=== PATIENT | female | born 1990 | race African-American/Black ===

== ENCOUNTER 2025-05-22 08:15 | Outpatient (AMB) | payer OTHER, SELFPAY ==
--- OUTSIDE RECORDS SUMMARY | 2024-01-29 09:55 | XMS_ITS | Encounter Summary ---
Author Organization [facility] [place] [address] Care Team Providers Care Tape Keller Operator Name Role Phone Hattie Pruitt DO Primary Care Provider [phone] Encounter Details Date Type Department Care Team (Latest Contact Info) Description 01/29/2024 9:55 AM EDT Hospital Encounter TH HISTORIC ENCOUNTERS EASTERN CONVERSION ONLY Multiple sclerosis (CMS/HCC V24, CMS/HCC V28) Social History Tobacco Use Types Packs/Day Years Used Date Smoking Tobacco: Former Cigarettes Q uit: 09/10/2006 Smokeless Tobacco: Never Alcohol Use Standard Drinks/Week Comments Yes 0 (1 standard drink = 0.6 oz pur e alcohol) Housing Instability Answer Date Recorde d Are you worried that in the next 2 months you may not have stable housing? No 10/21/2024 Food Access & Nutrition Answer Date Rec orded Do you have access to a vari ety of food including fruits and vegetables? Yes 10/21/2024 Access to Healthcare Answer Date Record ed Within the last 3 months, ho w many times did you visit the emergency department for your medical care? 2 10/21/2024 Health Literacy Answer Date Recorded How often do you need to hav e someone help you when you read instructions, pamphlets, or other written material from your doctor or pharmacy? Never 10/21/2024 Caregiver: How often do you need to have someone help you when you read instructions, pamphlets, or other written material from your doctor or pharmacy? Not on file 10/21/2024 Financial Risk Answer Date Recorded How hard is it for you to pa y for the very basics like food, housing, medical care, and air conditioning / heating? Patient declined 10/21/2024 Transportation Answer Date Recorded Has the lack of transportati on kept you from meetings, work, or from getting things needed for daily living? No Has the lack of transportati on kept you from medical appointments or from getting medications? No 10/21/2024 Social Isolation Answer Date Recorded How often do you feel lonely or isolated from th ose around you? Never 10/21/2024 Food Risk Answer Date Recorded Within the past 12 months we worried whether our food would run out before we got money to buy more. Never true 10/21/2024 Within the past 12 months th e food we bought just didn't last and we didn't have money to get more. Never true 10/21/2024 Dependent Care Answer Date Recorded Do you need help finding or paying for care for your loved ones. For example, child psychiatrist or elderly care for an older adult? No 10/21/2024 Education Answer Date Recorded Do you think completing more education or training, like finishing a GED, going to college, or learning a trade, would be helpful for you? No 10/21/2024 Employment and Income Answer Date Recor ded During the last four weeks, have you been actively looking for work? No 10/21/2024 Living Situation Answer Date Recorded What is your living situation? 0 10/21/2024 Comments Unknown Sex and Gender Information Value Date Recorded Sex Assigned at Not on file Legal Sex Female 3:39 AM EST Gender Identity Not on file Sexual Orientation Not on file documented as of this encounter Plan of Treatment Upcoming Encounters Date Type Department Care Team (Late st Contact Info) Description 05/25/2025 12:00 PM EDT Appointment [facility] [place] [facility] [address] [address] documented as of this encounter Visit Diagnoses Diagnosis Multiple sclerosis documented in this encounter Care Teams Tape Keller Operator Relationship Specialty Start Date End Date Hattie Pruitt DO PCP - General Internal Medicine 06/10/22 03/16/24 documented as of this encounter
--- OUTSIDE RECORDS SUMMARY | 2024-06-16 09:52 | XMS_ITS | Encounter Summary ---
Author Organization [facility] [place] [address] Care Team Providers Care Business Coordinator Name Role Phone Hatite Pruitt DO Primary Care Provider [phone] Encounter Details Date Type Department Care Team (Late st Contact Info) Description 06/16/2024 9:52 AM EDT Hospital Encounter TH HISTORIC ENCOUNTERS EASTERN CONVERSION ONLY Social History Tobacco Use Types Packs/Day Years [...] care for your loved ones. For example, assistant child care teacher or elderly care for an older adult? [...] on file documented as of this encounter Last Filed Vital Signs Vital Sign Reading Time Taken Comments Blood Pressure - - Pulse - - Temperature - - Respiratory Rate - - Oxygen Saturation - - Inhaled Oxygen Concentration - - Weight 90.4 kg (199 lb 3.2 oz) 03/11/2024 11:21 AM EDT Height 170.2 cm (5' 7 ) 03/11/2024 11:21 AM EDT Body Mass Index 31.2 03/11/2024 11:21 AM EDT documented in this encounter Plan of Treatment Upcoming Encounters Date Type Department Care Team (Late st Contact Info) Description 05/25/2025 12:00 PM EDT Appointment [facility] for [place] Out[facility] - [place] [address] [facility] [address] [place] [address] documented as of this encounter Visit Diagnoses Not on filedocumented in this encounter Care Teams Business Coordinator Relationship Specialty Start Date End Date Hattie Pruitt DO [address] [place] [address] PCP - General 06/16/24 09/01/24 documented as of this encounter
--- OUTSIDE RECORDS SUMMARY | 2024-06-21 10:11 | XMS_ITS | Encounter Summary ---
Author Organization [facility] Address [address] [place] [address] Care Team Providers Care Teacher Ballet Name Role Phone Hattie Pruitt DO Primary Care Provider Encounter Details Date Type Department Care Team (Late st Contact Info) Description 06/21/2024 10:11 AM EDT Hospital Encounter TH HISTORIC ENCOUNTERS EASTERN CONVERSION ONLY Vicki Quan, TAISHA [address] [facility] [address] [place] [address] Social History Tobacco Use Types Packs/Day Years [...] Record ed Within the last 3 months, princess leon many times did you visit the emergency [...] for your loved ones. For example, child & adolescent psychiatrist or elderly care for an older [...] Sign Reading Time Taken Comments Blood Pressure 120/83 06/21/2024 10:35 AM EDT Sitting Left arm Pulse 82 06/21/2024 10:35 AM EDT Temperature - - Respiratory Rate - - Oxygen Saturation - - Inhaled Oxygen Concentration - - Weight 90.4 kg (199 lb 3.2 oz) 03/11/2024 11:21 AM EDT Height 170.2 cm (5' 7 ) 03/11/2024 11:2 1 AM EDT Body Mass Index 31.2 03/11/2024 11:21 AM EDT documented in this encounter Progress Notes * TAISHA Garcia - 06/21/2024 10:30 AM EDT [facility]: MS HPI: Patient is a 33 y.o. year old female who presents for follow-up regarding ongoing management of multiple sclerosis. Disease Summary Date of onset/Initial symptom presentation:About 2016 Date of diagnosis of MS: 08/2021 Disease course at onset: RRMS Current disease course: RRMS Last MS exacerbation: Previous disease therapies(reason for switch): N/A Current disease therapy: Tysabri Most recent MRI Brain:?? 07/2023 stable 08/30/2022-interval decrease in size of lesions Most recent MRI Cervical spine: 09/06/2022- unchanged Most recent MRI Thoracic spine: CSF: JCV serology result and date:?? neg 0.22 (07/2023) MS mimickers: SSA/SSB/MOG/RACHID/AQP4 negative?? Interim History: Patient returns for urgent visit.She continues Tysabri for disease modifying therapy. She denies new neurological symptoms suggestive of demyelinating event since she was last seen in the office. 06/10 She developed chest pain- Went to [facility] ER and workup neg. symptoms improved by the next day however happened again yesterday. She saw her PCP who felt chest pain was likely related to anxiety.Asked her to reduce citalopram back to 30 mg daily and discontinue Adderall completely. Patient herself feels that 2 episodes of chest pain which occurred were likely related to situational anxiety and she fears that if she discontinues Adderall completely her fatigue will be disabling. She cares for young children and is concerned about how she would manage. Review of Systems Constitutional: Positive for fatigue. All other systems reviewed and are negative. Patient Active Problem List Diagnosis SNOMED CT(R) ??? 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 Multiple sclerosis (HCC) MULTIPLE SCLEROSIS Current Outpatient Medications: ??? albuterol 108 (90 Base) MCG/ACT inhaler, Inhale 1 puff into the lungs as needed., Disp: , Rfl: ??? amphetamine-dextroamphetamine (ADDERALL XR) 20 MG 24 hr capsule, Take 1 capsule (20 mg total) by mouth daily., Disp: 30 capsule, Rfl: 0 ??? amphetamine-dextroamphetamine (ADDERALL, 10MG,) 10 MG tablet, 1 po in afternoon PRN, Disp: 30 tablet, Rfl: 0 ??? citalopram (CeleXA) 20 MG tablet, Take 1.5 tablets (30 mg total) by mouth daily., Disp: , Rfl: ??? ergocalciferol (VITAMIN D2) capsule 17395 units, Take 1 capsule (50,000 Units total) by mouth once a week., Disp: 12 capsule, Rfl: 0 ??? LORazepam (ATIVAN) 0.5 MG tablet, 1 po 1 hour prior to MRI, may repeat 1 at time of MRI if needed, Disp: 5 tablet, Rfl: 0 ??? Magnesium 400 MG CAPS, Take 400 mg by mouth daily., Disp: 30 capsule, Rfl: 3 ??? medroxyPROGESTERone Acetate (DEPO-PROVERA IM), Inject into the muscle., Disp: , Rfl: ??? SUMAtriptan (IMITREX) 50 MG tablet, TAKE 1 TABLET BY MOUTH EVERY 2 HOURS NEEDED FOR MIGRAINE., Disp: 10 tablet, Rfl: 0 Neuro Exam BP 120/83 (BP Location: Left arm, Patient Position: Sitting, Cuff Size: Adult Regular) Pulse 82 There is no height or weight on file to calculate BMI. ?? MS: AOx3 CN: perrla, no red desaturation,V1-3 intact to LT, face symmetric, bilateral SCM/trapezius 5/5, tongue/uvula/palate midline Motor: 5/5 in all extremities except left lower extremity 4+/ 5 proximally Sensation: Intact to light touch, temperature, patient definitely more on the left side Reflexes:??2+ in bilateral biceps and 4+ patellae, toes downgoing bilaterally Cerebellar: FNF intact bilaterally, rapid repetitive movement slower in the left lower extremity, difficulty tandem gait, romberg negative 25 foot timed walk: Not performed at this visit (6.4, 6.8 last visit) A/P: Multiple Sclerosis: Brianna Pacheco is a 33-year-old female with multiple sclerosis treated with Tysabri for disease-modifying therapy. She is recently experienced 2 episodes of chest pain related to situational anxiety. Although her PCP suggested discontinuing her Adderall, she is very concerned that doing so would result in disabling fatigue. I would support her continuing the Adderall at this time and monitoring her anxiety and any further episode of chest pain closely. PCP is also referred her to psychiatric provider which I feel is a great idea. A. Disease modifying therapy and diagnostic plan: -Continue Tysabri per [facility] protocol -Will be due for MRI brain, cervical, and thoracic spine in July 2024 Tysabri monitoring protocol While a patient is ZULEMA virus antibody (JCV Ab) negative and on Tysabri we will check the JCV Ab status every 6 months. ??If the JCV Ab remains negative or JCV Ab positive with an index value 0-0.4, wewill monitor brain MRIs annually (without contrast), unless clinically indicated sooner. ?? If the JCV Ab is positive with an index value between 0.4 and less than or equal to 1.5 the JCV Ab index will continue to be tested every 6 months and MRIs will be done every 6 months with and without contrast, unless clinically indicated sooner as the risk of progressive multifocal leukoencephalopathy (PML) is low. ?? If the JCV Ab is positive with an index value between 0.9 and 1.5 it will ??be checked every 6 months and MRIs will be done every 6 months. If the JCV Ab is positive with an index value >1.5, Tysabri will likely be discontinued after discussions with the patient given the increased risk of PML (in this case, if a patient decides to continue Tysabri despite the known risk of PML, the JCV Ab index value will be checked every 4 months and a brain MRI with and without contrast will be done every 4 months). ?? If the patient has ever been treated with chemotherapeutics in the past, Tysabri will be discontinued, regardless of the index value, if they becomes JCV Ab positive. ? B. ??Symptomatic therapy plan: ?? Mood changes: Continue citalopram 30 mg, has been referred to psychiatric provider ?? Fatigue: Patient will consider continuing Adderall due to history of disabling fatigue Migraine: Patient has sample of Ubrelvy [address] try in place of sumatriptan for acute migraine. ??Patient was encouraged to call the office with any questions or concerns. Follow up in 4 months or sooner as needed with any new neurological symptoms or concerns. The patient and I discussed the clinical picture during today's appointment. Additional time was spent prior to the actual appointment reviewing records, lab values and imaging results and preparing documentation for today's visit. There was also time spent following the in person visit documenting, arranging for further diagnostic testing and follow-up appointments. The entire time spent in thisprocess was greater than 30 minutes. The majority of the actual ataz-me-vvha visit was spent counseling the patient with respect to the current neurological picture. Vicki Quan PA-C Cc: Dr. Schneider documented in this encounter Plan of Treatment Upcoming Encounters Date Type Department Care Team (Late st Contact Info) Description 05/25/2025 12:00 PM EDT Appointment [facility] for [place] Outpatient [facility] - [place] [address] [facility] [address] [place] [address] documented as of this encounter Visit Diagnoses Not on filedocumented in this encounter Care Teams Teacher Ballet Relationship Specialty Start Date End Date Hattie Pruitt DO [address] [place] [address] PCP - General 06/16/24 09/01/24 documented as of this encounter
--- OUTSIDE RECORDS SUMMARY | 2025-05-22 09:20 | XMS_ITS | Clinical Summary ---
Author Organization [facility] Address [address] [place] [address] Care Team Providers Care Safety Physician Name Role Phone Hattie Pruitt Primary Care Provider [phone] Allergies Active Allergy Reactions Criticality Noted Date Comments Drospirenone-Ethinyl Estradiol Other (see comments) 09/10/2021 Iodinated Contrast Media Hives 08/20/2022 Penicillins Hives,Itching,Rash,S welli ng High 06/16/2016 Shellfish Containing Products Rash Low 09/10/2021 Medications No known medications Active Problems Problem Noted Date Diagnosed Date PCOS (polycystic ovarian syndrome) 10/01/2022 Asthma 10/01/2022 Cervical dysplasia 10/01/2022 Chronic female pelvic pain 10/01/2022 Uterine scar from previous delivery 08/2022 Uterine size-date discrepancy 10/01/2022 Acute maxillary sinusitis, unspecified Demyelinating disease of central nervous system 09/10/2021 MS (multiple sclerosis) 08/30/2021 Dichorionic diamniotic twin gestation 06/19/2016 labor 06/16/2016 Social History Tobacco Use Types Packs/Day Years Used Date Smoking Tobacco: Never Assessed Comments Unknown Sex and Gender Information Value Date Recorded Sex Assigned at Female 09/30/2022 6:00 PM EST Legal Sex Female 4:02 PM EST Gender Identity Female 09/30/2022 6:00 PM EST Sexual Orientation Straight 09/30/2022 6: 00 PM EST Last Filed Vital Signs Vital Sign Reading Time Taken Comments Blood Pressure 117/68 10/01/2022 3:12 PM EST Pulse 73 10/01/2022 3:12 PM EST Temperature - - Respiratory Rate - - Oxygen Saturation - - Inhaled Oxygen Concentration - - Weight - - Height - - Body Mass Index - - Plan of Treatment Health Maintenance Due Date Last Done Comments Cervical Cancer Screening 1989 HIV Screening 1989 HPV and Pap Smear 1989 Hepatitis C Screening 1989 Pap Smear 1989 Hepatitis B Vaccines (1 of 3 - 19+ 3-dose series) 2008 Pneumococcal Vaccine: Pediat tammy (0-5 Years) and At-Risk Patients (6-50 Years) (1 of 2 - PCV) 2008 Alcohol/Substance Use Screening 08/31/2024 Depression Screening and Follow-Up 08/31/2024 Social Drivers of Health Brittani ual Screening 08/31/2024 COVID-19 Vaccine (4 - 2024-2 6 season) 2025 08/25/2021, 02/01/2021, 01/04/2021 Influenza Vaccine (#1) 2025 12/23/2021, 2015 DTaP,Tdap,and Td Vaccines (1 0 - Td or Tdap) 02/18/2032 02/17/2022, 05/09/2016, 03/18/2013, Additional history exists RSV Vaccine (60+ years old a nd patients) (1 - 1-dose 75+ series) 2064 Varicella Vaccines Completed 05/11/2008, 12/26/1998 Insurance [place] [address] Care Teams Safety Physician Relationship Specialty Start Date End Date Hattie Pruitt [address] [place] [address] PCP - General 08/11/22
--- OUTSIDE RECORDS SUMMARY | 2025-05-22 09:20 | XMS_ITS | Clinical Summary ---
Author Organization [facility] Address [address] [place] [address] Care Team Providers Care Wire Spooler Name Role Phone Hattie Pruitt DO Primary Care Provider [phone] Allergies Active Allergy Reactions Criticality Noted Date Comments Iodinated Contrast Media Hives 08/20/2022 Penicillin G Rash Low 09/10/2021 Shellfish Rash Low 09/10/2021 Drospirenone-Ethinyl Estradiol 09/10 Medications Medication Sig Dispensed Refills Start Date End Date Status albuterol 108 (90 Base) MCG/ACT inhaler Inhale 1 puff into the lungs as needed. 0 05/05/2019 Active medroxyPROGESTERone Acetate (DEPO-PROVERA IM) Inject into the muscle. 0 Active ergocalciferol (VITAMIN D2) capsule 79048 units Take 1 capsule (50,000 Units total) by mouth once a week. 12 capsule 0 12/08/2022 Active citalopram (CeleXA) 20 MG tablet Take 1.5 tablets (30 mg total) by mouth daily. 0 Active LORazepam (ATIVAN) 0.5 MG tablet 1 po 1 hour prior to MRI, may repeat 1 at time of MRI if needed 5 tablet 0 08/05/2023 Active Magnesium 400 MG CAPS Take 400 mg by mouth daily. 30 capsule 3 10/21/2023 Active SUMAtriptan (IMITREX) 50 MG tablet TAKE 1 TABLET BY MOUTH EVERY 2 HOURS NEEDED FOR MIGRAINE. 10 tablet 0 11/18/2023 Active amphetamine-dextroa mphetamine (ADDERALL, 10MG,) 10 MG tablet 1 po in afternoon PRN 30 tablet 0 06/20/2024 Active amphetamine-dextroa mphetamine (ADDERALL XR) 20 MG 24 hr capsule Take 1 capsule (20 mg total) by mouth daily. 30 capsule 0 06/20/2024 Active Active Problems Problem Noted Date Diagnosed Date Multiple sclerosis 09/11/2021 Demyelinating disease of central nervous system 09/10/2021 Family History Medical History Relation Name Comments Multiple sclerosis Neg Hx Relation Name Status Comments Father Alive Mother Alive Social History Tobacco Use Types Packs/Day Years Used Date Smoking Tobacco: Former Cigarettes Q uit: 09/10/2006 Smokeless Tobacco: Never Tobacco Cessation:Counseling Given: Not Answered Alcohol Use Standard Drinks/Week Comments Yes 0 (1 standard drink = 0.6 oz pur e alcohol) Social Sex and Gender Information Value Date Recorded Sex Assigned at Female 08/13/2021 11:35 AM EST Gender Identity Not on file Sexual Orientation Not on file Job Start Date Occupation Industry Not on file Not on file Not on file Last Filed Vital Signs Vital Sign Reading Time Taken Comments Blood Pressure 120/83 06/21/2024 10:35 AM EDT Pulse 82 06/21/2024 10:35 AM EDT Temperature 36.9 C (98.4 F) 06/16/2024 11:44 AM EDT Respiratory Rate 16 06/16/2024 10:15 AM EDT Oxygen Saturation 98% 06/16/2024 11:44 AM EDT Inhaled Oxygen Concentration - - Weight 90.4 kg (199 lb 3.2 oz) 03/11/2024 11:21 AM EDT Height 170.2 cm (5' 7 ) 03/11/2024 11:21 AM EDT Body Mass Index 31.2 03/11/2024 11:21 AM EDT Plan of Treatment Health Maintenance Due Date Last Done Comments Hepatitis C Screening 1989 Depression Screening 2001 BMI Counseling 11/14/2007 Preventative Health Evaluation 11/14/2007 Cervical Cancer Screening (Pap Smear) 2010 COVID-19 Vaccine ( season) 2025 06/06/2023 Influenza Vaccine (#1) 2025 , 12/23/2021, 06/23/2017, Additional history exists DTap / Tdap / Td (11 - Td or Tdap) 02/18/2032 02/17/2022, 05/09/2016, 03/18/2013, Additional history exists Hepatitis B Vaccines Completed 04/26/2003, 03/10/2002, 10/12/2001 Pneumococcal Vaccine Aged Out 10/27/2023 No long er eligible based on patient's age to complete this topic RSV Ped < 20 months Aged Out No longe r eligible based on patient's age to complete this topic Care Teams Wire Spooler Relationship Specialty Start Date End Date Hattie Pruitt DO [address] [place] [address] PCP - General Family Medicine 08/20/22
--- OUTSIDE RECORDS SUMMARY | 2025-05-22 09:20 | XMS_ITS | Clinical Summary ---
Author Organization 175 [facility] Address [address] [place] [address] Phone Care Team Providers Care Meter Inspector Name Role Phone Sammy Schneider MD Primary Care Provider [phone] Allergies Active Allergy Reactions Criticality Noted Date Comments Barium Sulfate 07/07/2024 Drospirenone-Ethinyl Estradiol Other 09/10/2021 Iodinated Contrast Media Hives Low 06/26/2022 Other reaction(s): Hives/Urticaria PT BEGAN TO HAVE ITCHY TONGUE, BUT STATE IT WENT AWAY AND FELT FINE AFTER INJECTION. PT WENT HOME. PT CALLED [facility] AFTER LEAVING APPOINTMENT AND STATED SHE HAD TWO HIVES ON HER FACE. ADVISE IF GETS WORSE TO GO TO ER.-THOMAS /ANTONIO Penicillins Hives,Rash Medium 04/11/2009 Age 7 or 8 Shellfish Containing Products Rash Low 09/10/2021 Shellfish Derived Rash Low 09/10/2021 Medications albuterol HFA (PROAIR HFA ; PROVENTIL HFA ; VENTOLIN HFA) 90 mcg/actuation inhaler Inhale 2 puffs by mouth. 2 Active acetaminophen (TYLENOL) 325 mg tablet Take 3 tablets (975 mg total) by mouth. 2 Active citalopram (CeleXA) 20 mg tablet Take 1.5 tablets (30 mg total) by mouth 1 (one) time each day. 4 025 Active gabapentin (NEURONTIN) 300 mg capsule Take 1 capsule (300 mg total) by mouth at bedtime. 30 each 1 5 Active acetaminophen-co deine (TYLENOL #3) 300-30 mg per tablet Take 1 tablet by mouth 2 (two) times a day if needed for severe pain. Max Daily Amount: 2 tablets 20 tablet 5 Active meloxicam (Mobic) 7.5 mg tablet Take 1 tablet (7.5 mg total) by mouth 1 (one) time each day if needed for moderate pain. 30 each 1 5 Active cetirizine (ZyrTEC) 10 mg tabletIndication s:Other seasonal allergic rhinitis Take 1 tablet (10 mg total) by mouth 1 (one) time each day. 90 tablet 1 5 Active ubrogepant (UBRELVY) 100 mg tabletIndication s:Migraine without aura and without status migrainosus, not intractable 1 po at onset of migraine, may repeat 1 additional dose in 2 hours if needed Ma 2/24 hours 9 tablet 5 5 Active fluticasone propionate (FLONASE) 50 mcg/actuation nasal spray Administer 2 sprays into each nostril 1 (one) time each day. Shake gently. Before first use, prime pump. After use, clean tip and replace cap. 16 g 5 5 026 Active EPINEPHrine (EPIPEN) 0.3 mg/0.3 mL injection Inject 0.3 mL (0.3 mg total) into the thigh 1 (one) time each day if needed for anaphylaxis. Call 911 after use. 2 each 3 5 Active LORazepam (Ativan) 0.5 mg tablet 1 po 1 hour prior to MRI, may repeat 1 at time of MRI if needed 5 tablet 5 Active levocetirizine (Xyzal) 5 mg tablet Take 1 tablet (5 mg total) by mouth 1 (one) time each day in the evening. 90 each 2 5 026 Active baclofen (LIORESAL) 10 mg tablet TAKE 1 TABLET BY MOUTH DAILY AT BEDTIME 30 tablet 2 5 Active calcium carbonate-vitami n D 500 mg-5 mcg (200 unit) per tablet Take 1 tablet by mouth 2 (two) times a day. 60 each 11 5 026 Active betamethasone dipropionate (DIPROSONE) 0.05 % cream Apply twice a day on the rash for 7 days 45 g 1 5 Active amphetamine-dext roamphetamine XR (ADDERALL XR) 20 mg 24 hr capsule Take 1 capsule (20 mg total) by mouth 1 (one) time each day. Max Daily Amount: 20 mg 30 each 5 Active amphetamine-dext roamphetamine (ADDERALL) 5 mg tablet Add 5mg (1)tablet to the 20mg tablet in the afternoon dose as needed. (Dose Increase) 30 tablet 5 Active amphetamine-dext roamphetamine (ADDERALL) 10 mg tablet Take 1 tablet (10 mg total) by mouth 1 (one) time each day. Max Daily Amount: 10 mg 30 each 5 Active amphetamine-dext roamphetamine (ADDERALL) 20 mg tablet Take 1 tablet (20 mg total) by mouth 1 (one) time each day in the morning. Max Daily Amount: 20 mg Active amphetamine-dext roamphetamine XR (ADDERALL XR) 20 mg 24 hr capsule Take 1 capsule (20 mg total) by mouth 1 (one) time each day. Max Daily Amount: 20 mg 30 each 5 025 Discontin ued(Reord er) amphetamine-dext roamphetamine (ADDERALL) 10 mg tablet Take 1 tablet (10 mg total) by mouth 1 (one) time each day. Max Daily Amount: 10 mg 30 each 5 025 Discontin ued(Reord er) amphetamine-dext roamphetamine (ADDERALL) 5 mg tablet Add 5mg (1)tablet to the 20mg tablet in the afternoon dose as needed. (Dose Increase) 30 tablet 5 025 Discontin ued(Reord er) Active Problems Problem Noted Date Diagnosed Date Asthma 10/01/2022 Cervical dysplasia 10/01/2022 Chronic female pelvic pain 10/01/2022 Uterine scar from previous delivery 08/2022 Uterine size-date discrepancy 10/01/2022 Acute maxillary sinusitis, unspecified 3 Cyst, congenital, lung 07/25/2022 Overview (10/05/2022): Last Assessment & Plan: 31-year-old woman recently diagnosed with MS found to have an enlarging 8 cm cyst with compression of the right middle lobe on CT imaging. I had a long discussion with her about the findings on her CAT scan and about cysts in the lung in general. This is likely a congenital cystic lesion in the lung with risks being mainly of compression of the other lobes of the lung and rupture with pneumothorax. Options would be continued observation versus surgical removal. I discussed the risks and benefits of each and she opted for surgical removal so plan will be for a da Wilfredo right-sided resection of bulla. She would like to schedule this for after the holidays so we will plan on doing it the first week in August. In addition, I would like her to see her neurologist for a preoperative assessment around her medication and any other preparations we would need to make for surgery. All questions were answered. 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 Last Assessment & Plan: 31 y/o female S/P Robotic right resection of bronchogenic cyst on 09/23/22. 1. Patient is recovering well from her surgery. It appears she is having moderate to severe post op pain at times accompanied by numbness/tingling. I will reorder oxycodone 5 mg #30 with instructions to take 1 every 6 hours prn pain and may take up to 2 every 6 hours. She will run out of current RX tomorrow. Continue bowel regimen. 2. Instructed her to call if numbness does not resolve in 6 months time for pain consult. Encouraged her that she is only 2 weeks out and she is still healing from surgery. 3. Path report demonstrated a bronchiogenic cyst. No further follow-up required. 3. Continue IS X 2 more weeks 4. Pt is instructed to call office with any additonal questions or concerns. Care discussed with Dr. Singleton. 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 [place] Out[facility] Rehabil[facility]itation [address] [phone] MS (multiple sclerosis) ([facility] V24, [facility] V28) (Primary Dx) Discharge Disposition: Home or Self Care 04/14/2025 Telephone Internal Medicine [address] [phone] Storm Stinson [place] 04/10/2025 10:45 AM EDT Office Visit Internal Medicine [address] [phone] Sammy Schneider MD Contact dermatitis due to nickel (Primary Dx); Overweight 04/10/[address] [facility] [address] [phone] Sammy Schneider MD 03/30/2025 Telephone [facility] [place] Out[facility]itation [address] [phone] Vicki Quan PA 03/29/2025 9:57 AM EDT - 03/29/2025 11:59 PM EDT Hospital Encounter [facility] [place] Outpatient Rehabil[facility]itation [address] [phone] MS (multiple sclerosis) ([facility] V24, [facility] V28) (Primary Dx) Discharge Disposition: Home or Self Care 03/01/2025 9:59 AM EDT - 03/01/2025 11:59 PM EDT Hospital Encounter [facility] [place] Out[facility] [address] [place] [address] MS (multiple sclerosis) ([facility] V24, [facility] V28) (Primary Dx) Discharge Disposition: Home or Self Care from Last 3 Months Immunizations Name Administration Dates Next Due COVID-19 (Pfizer/Comirnaty) 12yo and older 06/06/2023 DTP 01/20/1995, 1,06/10/1990,03/19,01/08/1990 DTaP (Infanrix) 6wks to less than 7yo 01/20/2005 QMsM-TPJ-LFA (Pentacel) 2mo to less than 5yo 01/20/1995,02/15/1991,11/22/1990,10/04 HPV, Quadrivalent 04/17/2008,11/09/2007,09/07/19 08 Hepatitis B Pediatric (Enger ix B; Recombivax HB) to less than 20 yo 04/26/2003,03/10/2002,10/12/2001 Influenza Quadravalent, MDCK , 0.5ml, preservative free (Flucelvax) 6mo and older 05/05/2024 Influenza Quadravalent, MDCK , 0.5ml, with preservative (Flucelvax) 6mo and older 06/23/2017 Influenza Quadrivalent, 0.5m l, preservative free (Fluarix; FluLaval; Fluzone) ages 6mo and older (Afluria) 3yo and older 06/06/2023 Influenza trivalent, with pr eservative (Fluzone; Afluria) 6mo and older 12/23/2021,06/05/2016 MMR, measles mumps and rubel la Live (Priorix; M-M-R II) 12mo and older 01/20/1995,02/15/1991 Meningococcal MCV4P 09/07/2007 OPV 01/20/1995, 1,03/19/1990,01/08 PPD Test 08/20/2017, 7,09/04/2015,12/11 Pfizer SARS-CoV-2 COVID-19, mRNA, LNP-S, preservative free 06/06/2023 Pneumococcal conjugate 20 va lent (Prevnar 20, PCV 20) 2mo and older 10/27/2023 Td Tetanus diptheria (Tdvax) 7yo and older 04/29/2002 Tdap Tetanus diptheria acell ular pertussis (Boostrix; Adacel) 7yo and older 02/17/2022,05/09/2016,03/18/2013,05/11 Surgical History Surgery Date Site/Laterality Comments CERVICAL BIOPSY W/ LOOP ELECTRODE EXCISION 04/14/2017, 2018 PROCEDURE: HISTORICAL CONE BIOPSY; COMMENT: precancerous cells. Dr. Hu at [place] OTHER SURGICAL HISTORY PROCEDURE: HISTORY OTHER; COMMENT: tooth extraction WISDOM TOOTH EXTRACTION Bilateral PROCEDURE: HISTORICAL WISDOM TEETH EXTRACTION Medical History Medical History Date Comments Depression 01/16/2011 DX:Depression History of cervical dysplasia 06/01/2013 DX :History of cervical dysplasia; COMMENT: [facility] bx 03/2017 precancerous cells, f/u benign per Pt. Anxiety 12/11/2014 DX:Anxiety PCOS (polycystic ovarian syndrome) 06/23/2017 DX:PCOS (polycystic ovarian syndrome) Vitamin D deficiency 07/20/2017 DX:Vitamin D deficiency History of mononucleosis 07/20/2017 DX:Hist ory of mononucleosis; COMMENT: Hospitalized 05/2006 Multiple sclerosis 07/2021 DX:Multiple s clerosis (HCC) PCOS (polycystic ovarian syndrome) DX:PCOS (polycystic ovarian syndrome) Abnormal Pap smear of cervix DX: Abnormal Pap smear of cervix MS (multiple sclerosis) DX:MS (m ultiple sclerosis) (HCC) Family History Medical History Relation Name Comments Breast cancer Aunt Grand aunt on her mother's side. Hypertension Father Thyroid disease Mother Diabetes Mother's side maternal great grandmother Heart attack Paternal Grandfather CHF Diabetes Paternal Grandmother Multiple sclerosis Neg Hx Relation Name Status Comments Aunt Great Aunt- mot her's side Father Alive Mother Alive Mother's side great grandmot her Paternal Grandfather Paternal Grandmother Social History Tobacco Use Types Packs/Day Years [...] for your loved ones. For example, child care counselor or elderly care for an older adult? [...] on file Sexual Orientation Not on file Obstetrics History Last Filed Vital Signs Vital Sign Reading Time Taken Comments Blood Pressure 120/80 04/26/2025 12:06 PM EDT Pulse 83 04/26/2025 12:06 PM EDT Temperature 36.4 C (97.6 F) 04/26/2025 12:06 PM EDT Respiratory Rate 16 04/26/2025 12:06 PM EDT Oxygen Saturation 98% 04/26/2025 12:06 PM EDT Inhaled Oxygen Concentration - - Weight 87.3 kg (192 lb 6.4 oz) 04/10/2025 10:50 AM EDT Height 167.6 cm (5' 6 ) 04/10/2025 10:50 AM EDT Body Mass Index 31.05 04/10/2025 10:50 AM EDT Plan of Treatment Upcoming Encounters Date Type Department Care Team ([facility] st Contact Info) Description 05/25/2025 12:00 PM EDT Appointment [facility] [place] [facility] [address] [phone] Health Maintenance Due Date Last Done Comments Cervical Cancer Screening: Pap Smear 2010 Hepatitis C Screening 08/07/2022 Social Influencers of Health Screening 10/21/2025 10/21/2024 DTaP,Tdap,and Td Vaccines (11 - Td or Tdap) 02/18/2032 02/17/2022, 05/09/2016, 03/18/2013, Additional history exists RSV Immunization Adult Patients (1 - 1-dose 75+ series) 2064 HIB Vaccines Completed 01/20/1995, 01/29, 11/22/1990, Additional history exists IPV Vaccines Completed 01/20/1995, 12/30, 04/29/1991, Additional history exists MMR Vaccines Completed 01/20/1995, 02/15/1991 Hepatitis B Vaccines Completed 04/26/2003, 03/10/2002, 10/12/2001 Meningococcal ACWY Vaccine Completed 09/07/2007 HPV Vaccines Completed 04/17/2008, 10/29, 09/07/2007 Varicella Vaccines Completed 05/11/2008, 12/26/1998 HIV Screening Completed 06/16/2016 Pneumococcal Vaccine: Pediatrics (0 to 5 Years) and At-Risk Patients (6 to 49 Years) Completed 10/27/2023 COVID-19 Vaccine Completed 05/22/2024, 02/2023, 06/06/2023, Additional history exists Depression Screening Completed 10/21/2024 Influenza Vaccine Completed 05/09/2025, , 06/06/2023, Additional history exists Hepatitis A Vaccines Aged Out No long er eligible based on patient's age to complete this topic Meningococcal B Vaccine Aged Out No l onger eligible based on patient's age to complete this topic RSV Immunization Patients Under 20 months Aged Out No longer eligible based on patient's age to complete this topic Procedures Procedure Name Priority Date/Time Associated Diagnosis Comments CBC WITH AUTO DIFFERENTIAL Routine 03/29/2025 10:03 AM EDT CBC AND DIFFERENTIAL Routine 03/29/2025 10:03 AM EDT HEPATIC FUNCTION PANEL Routine 03/29/2025 10:02 AM EDT JCV POLYOMA VIRUS ANTIBODY WITH REFLEX TO INHIBITION ASSAY Routine 03/29/2025 10:02 AM EDT MS (multiple sclerosis) ([facility] V24, [facility] V28) from Last 3 Months Results * (ABNORMAL) CBC auto differential (03/29/2025 10:03 AM EDT) WBC 8.2 4.8 - 10.8 K/mcL LAB HEMETOLOGY METHOD 03/29/2025 2:30 PM EDT [facility] RBC 4.50 3.80 - 4.80 M/mcL LAB HEMETOLOGY METHOD 03/29/2025 2:30 PM EDT [facility] Hemoglobin 12.3 11.5 - 16.0 g/dL LAB HEMETOLOGY METHOD 03/29/2025 2:30 PM EDT [facility] Hematocrit 39.0 35.0 - 47.0 % LAB HEMETOLOGY METHOD 03/29/2025 2:30 PM EDT [facility] MCV 86.1 79.0 - 98.0 FL LAB HEMETOLOGY METHOD 03/29/2025 2:30 PM EDT [facility] MCH 27.2 27.0 - 32.0 pcg LAB HEMETOLOGY METHOD 03/29/2025 2:30 PM EDT [facility] MCHC 31.5(L) 32.0 - 37.0 g/dL LAB HEMETOLOGY METHOD 03/29/2025 2:30 PM EDT [facility] RDW 13.2 11.0 - 15.0 % LAB HEMETOLOGY METHOD 03/29/2025 2:30 PM EDT [facility] Platelets 308 130 - 400 K/mcL LAB HEMETOLOGY METHOD 03/29/2025 2:30 PM EDT [facility] MPV 10.0 7.0 - 11.0 FL LAB HEMETOLOGY METHOD 03/29/2025 2:30 PM EDT [facility] NRBC 0.0 <1.0 % LAB HEMETOLOGY METHOD 03/29/2025 2:30 PM EDT [facility] NRBC Absolute 0.00 <0.10 K/mcL LAB HEMETOLOGY METHOD 03/29/2025 2:30 PM EDT [facility] Neutrophils Relative 42.5 % LAB HEMETOLOGY METHOD 03/29/2025 2:30 PM EDT [facility] Lymphocytes Relative 46.6 % LAB HEMETOLOGY METHOD 03/29/2025 2:30 PM EDT [facility] Monocytes Relative 6.3 % LAB HEMETOLOGY METHOD 03/29/2025 2:30 PM EDT [facility] Eosinophils Relative 3.1 % LAB HEMETOLOGY METHOD 03/29/2025 2:30 PM EDT [facility] Basophils Relative 0.9 % LAB HEMETOLOGY METHOD 03/29/2025 2:30 PM EDT [facility] Immature Granulocytes Relative 0.6 % LAB HEMETOLOGY METHOD 03/29/2025 2:30 PM EDT [facility] Neutrophils Absolute 3.48 1.50 - 7.00 K/mcL LAB HEMETOLOGY METHOD 03/29/2025 2:30 PM EDT [facility] Lymphocytes Absolute 3.80 1.00 - 5.00 K/mcL LAB HEMETOLOGY METHOD 03/29/2025 2:30 PM EDT [facility] Monocytes Absolute 0.51 0.20 - 1.00 K/mcL LAB HEMETOLOGY METHOD 03/29/2025 2:30 PM EDT [facility] Eosinophils Absolute 0.25 0.00 - 0.50 K/mcL LAB HEMETOLOGY METHOD 03/29/2025 2:30 PM EDT [facility] Basophils Absolute 0.07 0.00 - 0.20 K/mcL LAB HEMETOLOGY METHOD 03/29/2025 2:30 PM EDT [facility] Immature Granulocytes Absolute 0.05(H) 0.00 - 0.03 K/mcL LAB HEMETOLOGY METHOD 03/29/2025 2:30 PM EDT [facility] Blood Venous blood specimen / Unknown Venipuncture / Unknown 03/29/2025 10:03 AM EDT 03/29/2025 10:03 AM EDT us Vicki SUMNER LAB BLOOD ORDERABLES Final R esult [facility] [address] [place] [address], * JCV polyoma virus antibody with reflex to inhibition assay (03/29/2025 10:02 AM EDT) Index Value 0.17 04/05/2025 12:05 PM EDT [facility] JCV Antibody Negative 04/05/2025 12:05 PM EDT [facility] Comment: Index interpretive criteria: <0.20 negative 0.20-0.40 indeterminate >0.40 positive Interpretation Note 04/05/2025 12:05 PM EDT [facility] Comment: INTERPRETATION Negative: Antibodies to JCV not detected. Indeterminate: Low level reactivity detected, see Inhibition Assay result below for the final antibody result. Positive: Antibodies to ZULEMA virus (JCV) detected indicating the patient has been exposed to JCV at an undetermined time. The STRATIFY JCV(R) DxSelect(TM) Antibody Test is an enzyme-linked immunosorbent assay (JUDIT) designed to detect JCV antibodies to help identify individuals who have been exposed to the virus. Samples with low level reactivity in the detection assay are retested in a confirmation (inhibition) assay to confirm presence or absense of JCV-specific antibodies. Retrospective analyses of post marketing data from various sources, including observational studies and spontaneous reports obtained worldwide, suggest that the risk of developing PML may be associated with relative levels of serum anti-JCV antibody as measured by anti-JCV antibody index. (1) (1) TYSABRI(natalizumab)US Prescribing Information Interpretation Note 04/05/2025 12:05 PM EDT [facility] Comment: Positive: Antibodies to ZULEMA virus (JCV) detected indicating the patient has been exposed to JCV at an undetermined time Negative: Antibodies to JCV not detected Blood Venous blood specimen / Unknown Venipuncture / Unknown 03/29/2025 10:02 AM EDT 03/29/2025 10:02 AM EDT Narrative [facility] - 04/05/2025 12:05 PM EDT Performed at: 01 - [facility] [address] [place] [id number] Body Corporate Manager: Shavonne Golden MD, Phone: [phone] us Vicki SUMNER LAB BLOOD ORDERABLES Final R esult [facility] * Hepatic function panel (03/29/2025 10:02 AM EDT) Total Protein 7.2 6.0 - 8.0 g/dL LAB CHEMISTRY METHOD 03/29/2025 3:01 PM EDT [facility] Albumin 4.3 3.2 - 5.0 g/dL LAB CHEMISTRY METHOD 03/29/2025 3:01 PM [facility] Total Bilirubin 0.4 0.0 - 1.4 mg/dL LAB CHEMISTRY METHOD 03/29/2025 3:01 PM [facility] Bilirubin, Direct <0.1 0.0 - 0.3 mg/dL LAB CHEMISTRY METHOD 03/29/2025 3:01 PM [facility] Bilirubin, Indirect LAB CHEMISTRY METHOD 03/29/2025 3:01 PM [facility] Comment:Unable to calculate Indirect Bilirubin. ALT (SGPT) 23 10 - 60 unit/L LAB CHEMISTRY METHOD 03/29/2025 3:01 PM [facility] AST (SGOT) 13 10 - 42 unit/L LAB CHEMISTRY METHOD 03/29/2025 3:01 PM [facility] Alkaline Phosphatase 74 42 - 121 unit/L LAB CHEMISTRY METHOD 03/29/2025 3:01 PM [facility] Blood Venous blood specimen / Unknown Venipuncture / Unknown 03/29/2025 10:02 AM EDT 03/29/2025 10:02 AM EDT us Vicki SUMNER LAB BLOOD ORDERABLES Final R esult [facility] [address] [place] [address], from Last 3 Months Insurance [facility] [employer] Care Teams Meter Inspector Relationship Specialty Start Date End Date Sammy Schneider MD [address] [facility] [address] [place] [address] PCP - General Internal Medicine 09/02/24
--- OUTSIDE RECORDS SUMMARY | 2025-05-22 09:20 | XMS_ITS | Clinical Summary ---
Author Organization Formerly [facility] Address [address] [place] [address] Care Team Providers Care Teacher Lip Reading Name Role Phone Provider, Unknown Primary Care Provider [phone] Allergies Active Allergy Reactions Criticality Noted Date Comments Penicillins Hives Medium 06/16/2016 Medications famotidine (PEPCID) 20 MG tablet Take 20 mg by mouth 2 (two) times a day. 2 04/28/2016 Active Active Problems Problem Noted Date Diagnosed Date Dichorionic diamniotic twin gestation 06/19/2016 labor 06/16/2016 Social History Tobacco Use Types Packs/Day Years Used Date Smoking Tobacco: Never Comments No Sex and Gender Information Value Date Recorded Sex Assigned at Not on file Legal Sex Female 3:20 AM EDT Gender Identity Not on file Sexual Orientation Not on file Last Filed Vital Signs Vital Sign Reading Time Taken Comments Blood Pressure 118/64 06/19/2016 9:17 AM EDT Pulse 83 06/19/2016 9:17 AM EDT Temperature 36.7 C (98 F) 06/19/2016 9:17 AM EDT Respiratory Rate 20 06/19/2016 9:17 AM EDT Oxygen Saturation 97% 06/19/2016 9:17 AM EDT Inhaled Oxygen Concentration - - Weight 91.2 kg (201 lb) 06/16/2016 5:00 AM EDT Height 170.2 cm (5' 7 ) 06/16/2016 5:00 AM EDT Body Mass Index 31.48 06/16/2016 5:00 AM EDT Plan of Treatment Health Maintenance Due Date Last Done Comments Hepatitis C Virus Screening 1989 DTaP/Tdap/Td Vaccines (1 - Tdap) 2008 Hepatitis B Vaccines (1 of 3 - 19+ 3-dose series) 2008 Pap Smear (Ages 21-65) 2010 HPV Vaccines (1 - 3-dose SCD M series) 2016 Influenza Vaccine 03/31/2025 COVID-19 Vaccine (1 - 2023-2 5 season) 2025 HIV Screening Completed 06/16/2016, 06/16/2016, 01/10/2016 Pneumococcal Vaccine: Pediatric (0-5 Years) and At-Risk Patients (6 to 49 Years) Aged Out No longer eligible b ased on patient's age to complete this topic Procedures Procedure Name Priority Date/Time Associated Diagnosis Comments (REPORT) RAPID HIV 1/2 AB EIA REFLEX TO CONFIRMATION STAT 06/16/2016 5:58 AM EDT from Last 3 Months or Most Recently Relevant to Health Maintenance Results * Rapid HIV 1/2 Ab EIA Reflex to Confirmation (06/16/2016 5:58 AM EDT) [facility] Rapid HIV 1/2 Antibody Negative Negative [facility] Comment:OraQuick Advance is a rapid lateral immunoassay for detecting HIV-1/2 antibody. Blood specimen (specimen) Blood specimen / Unknown 06/16/2016 5:58 AM EDT 06/16/2016 6:57 AM EDT Adri Bower MD LAB BLOOD ORDERABLES Final Result [facility] from Last 3 Months or Most Recently Relevant to Health Maintenance Insurance MEDICAID OUT OF STATE [facility] on file Advance Directives * Full Code (Latest Code Status on File) Date Activated Date Inactivated Comments 06/18/2016 4:43 PM 06/19/2016 6:55 PM * Full Code Date Activated Date Inactivated Comments 06/16/2016 5:59 AM 06/18/2016 4:43 PM Care Teams Teacher Lip Reading Relationship Specialty Start Date End Date Provider, Unknown 1 DO NOT USE THIS RECORD PCP - General 06/16/16
--- NOTE | 2025-05-22 11:11 | A.OFFVIS_ITS ---
VS Expanded 05/22/25 11:23 Height 5 ft 6 in Weight 192 lb 8 oz BMI 31.1 Body Fat % 43.6 Body Fat Mass 84 Fat Free Mass 108.6 Visceral Fat Rating 8 Body Water % 40.4 Body Water Mass 77.8 Basal Metabolic Rate/Score 1,542 Intake Visit Reasons: [facility] * Allergies Penicillins Allergy (Mild, Verified 05/22/25 11:11) HIVES Medication List - Last Reconciled 05/22/25 by Farzad Maier MD albuterol sulfate 90 mcg/actuation (Ventolin HFA) 2 puffs inhalation Q6H PRN baclofen 10 mg PO BEDTIME cetirizine (All Day Allergy (cetirizine)) 10 mg PO DAILY PRN citalopram 30 mg PO DAILY dextroamphetamine-amphetamine 10 mg 1 tab PO DAILY dextroamphetamine-amphetamine 20 mg ER (Adderall XR) 1 cap PO DAILY fluticasone propionate 50 mcg/actuation 2 sprays intranasal DAILY levocetirizine 5 mg PO DAILY lorazepam 1 mg PO trazodone 25 - 50 mg PO BEDTIME ubrogepant (Ubrelvy) mg PO HPI HPI [facility] *: Details: Start time: 11.15am, End time: 12pm ?I spent 40 minutes speaking with the patient on the phone plus an additional 5 minutes reviewing and updating records for a total of 45 minutes HPI Comments Details: Previous weight loss efforts: self diet and exercise Wakes up: 5.30am, Sleeps: 10pm Breakfast: skips Lunch: 12pm (sandwiches) Dinner: 5pm (pasta, chicken) Snacks: 4pm (ice cream), 7pm (possibly ice cream) Exercise: has a manual treadmill Beverages: Coffee (1 cup/d black), Tea: none, Soda: none, Juice: none, ETOH: none PFSH Medical History (Updated 05/22/25 @ 11:28 by Farzad Maier MD) Insomnia Asthma Anxiety Depression Multiple sclerosis PCOS (polycystic ovarian syndrome) BMI 31.0-31.9,adult Obesity Surgical History (Updated 04/18/25 @ 12:43 by Karly Castaneda CMA) Hx of wisdom tooth extraction History of lung surgery Hx of section Family History (Updated 04/18/25 @ 12:47 by Karly Castaneda CMA) Mother No problems noted. Father Traveling blood clot in leg Social History (Updated 04/18/25 @ 12:47 by Karly Castaneda CMA) Alcohol intake: current Alcohol intake frequency: a few times a month Alcohol type: wine Patient Tobacco Use Status: Never used Tobacco Physical Exam Vital Signs: BMI result Body Mass Index 31.1 Telehealth Telehealth Telehealth Platform: Telephone Location of provider rendering services: practice address Location of patient: address on file Patient Identification confirmed using: Name, : Yes Telehealth method: voice only Patient verbally consented to treatment: Yes Patient verbally consented to billing insurance company: Yes Patient informed of any privacy concerns related to visit: Yes Minutes spent on Phone/Video with Pt.: 45 Assessment & Plan Assessment & Plan (1) Obesity: Code(s): E66.9 - Obesity, unspecified Category: Medical Qualifiers: Body mass index: BMI 31.0-31.9 Obesity classification: adult class 1 (BMI 30 - 34.9) Obesity type: due to excess calories Serious obesity comorbidity presence: with serious comorbidity Qualified Code(s): E66.811 - Obesity, class 1; E66.09 - Other obesity due to excess calories; Z68.31 - Body mass index [BMI] 31.0-31.9, adult Plan: 1. We discussed the potential side-effects of the Phentermine such as irritability, dry mouth, difficulty sleeping, dizziness, numbness in feet and high blood pressure. I asked her to get a blood pressure monitor and measure the blood pressure daily in the morning and evening. She needs to send the blood pressure readings daily and to call the office for blood pressure over 140/80 and she understands that. When you start the Phentermine please do NOT take the second extra Adderall dose in the afternoon. 2.??Nutritional counseling. Start with one premade PREMIER protein (buy at [employer] or [employer]) shake (mix 4oz of Premier mixed with 4oz low fat unsweetened almond milk each) at 7am-9am, one protein bar (Fit Crunch protein bar, buy at [employer], or [employer]) at 10am-12pm, another premade PREMIER protein shake (mix 4oz of Premier mixed with 4oz low fat unsweetened almond milk each) at 1pm-3pm, another [employer]unch protein bar,? dinner at 7pm (8 forks of protein and 8 forks of salad/vegetables) and if hungry, another HALF [employer] protein bar at 9pm- 10pm So you do 2 protein shakes, 2 to 2.5 protein bars and one meal per day. Meal to include lean meat (beef, fish, pork, turkey, chicken), or luxembourger yogurt, or egg whites, or beans with a salad with olive oil and fruits (berries, pears, apples, kiwi). Avoid salt, breads, potatoes, rice, pasta, desserts. 3. Each shake would be drunk slowly, like coffee in a period of 2 hours. 4. Cut each bar in 4 pieces and eat each piece in 30min ?to make each bar last 2 hours. 5. I emphasized the importance of measuring accurately the food portion and measure it when serving the food in plate 6. The meal portions include 8 full-size forks of meat and 8 full-size forks of salad. You always eat the meat portion but you can replace up to 4 forks for salad/vegetables with rice, potatoes or pasta, or a fruit ?if you like. The less you do it the better weight loss will be. 7. One full-size fork is what it can be scooped on the fork without falling aside and not what can be bit with the fork. Use regular forks like those you find in a typical restaurant. 8.? Please buy the body composition scale we discussed and send me weight measurements as soon as possible and then once a week. Always include your diet and exercise plan. 9. The best choice would be to purchase a stationary bike at home that can track calories. If you get one, please start stationary bike at a resistance level of 4.0 Increase level by 1.0 every 3 min to a max level of 10.0. Stay at this level for 3 min and then return to level 4.0 and repeat same steps until 300 calories are burned. Goal is to burn 2000 calories per week on exercise 10.?It is important of avoiding and for at least 18 months postoperatively and has been discussed at the infosession. 11. Goal is to lose at least 1.5-2lbs per week 12. Goal to lose at least 10% of your weight, which is about 22lbs. Minimum weight goal: 170lbs 13. Please follow the diet plan exactly without any change. If you don't like something about the plan or you feel hungry you need to communicate with me so I can help you revise the plan. You should not change the plan yourself Medications: New phentermine must administer 30 minutes before or 1-2 hours after breakfast 37.5 mg PO DAILY 30 caps 0RF E28.2 - Polycystic ovarian syndrome, E66.09 - Other obesity due to excess calories, E66.811 - Obesity, class 1, Z68.31 - Body mass index [BMI] 31.0-31.9, adult
[2025-05-22 11:23] VITALS: BMI 31.1
== END 2025-05-22 12:35 | disposition home or self-care (01) ==
LOC: HO.HBS 08:15
PROVIDERS: PCP Internal Medicine; Visit Provider Surgery
DX: E66.811 Obesity, class 1 (principal); E66.09 Other obesity due to excess calories; Z68.31 Body mass index [BMI] 31.0-31.9, adult
CPT/HCPCS: 99204